=== PATIENT | male | born 1945 | race Caucasian/White ===

== ENCOUNTER → 2018-03-19 | Outpatient (CLI) | payer OTHER ==
[~2018-03-19] MED LIST: ACIDOPHILUS PROB1 MG PO; COMPLETE MULTI1 EAC1 PO; Crestor40 MG PO; FISH1000 PO; LOSARTAN POTAS100 MG PO
[2018-03-19 13:53] LABS: BASOPHILS ABSOLUTE AUTO 0.04 K/mm3 (0.00-0.23); BASOPHILS PERCENT AUTO 0 % (0-2); EOSINOPHILS ABSOLUTE AUTO 0.38 K/mm3 (0.00-0.68); EOSINOPHILS PERCENT AUTO 4 % (0-6); Hemoglobin 13.9 g/dL (13.5-17.5); IMMATURE GRAN ABSOLUTE AUTO 0.04 K/mm3 (0.00-0.10); IMMATURE GRAN PERCENT AUTO 0 % (0-1); LYMPHOCYTES ABSOLUTE AUTO 0.88 K/mm3 (0.84-5.20); LYMPHOCYTES PERCENT AUTO 9 % (21-46); MONOCYTES PERCENT AUTO 9 % (4-13); Mean Corpuscular HGB 32.7 pg (26.0-34.0); Mean Corpuscular HGB Conc 33.9 g/dL (31.5-36.5); Mean Corpuscular Volume 97 fL (80-100); Mean Platelet Volume 10.4 fL (9.1-12.4); NEUTROPHILS ABSOLUTE AUTO 7.25 K/mm3 (1.96-9.15); NEUTROPHILS PERCENT AUTO 77 % (41-73); Platelet Count 164 K/mm3 (150-400); RDW Coefficient Variation 12.7 % (11.7-14.2); RDW Standard Deviation 44.8 fL (35.1-46.3); Red Blood Cell Count 4.25 M/mm3 (4.30-5.90); White Blood Cell Count 9.39 K/mm3 (4.00-11.30)
[2018-03-19 15:23] LABS: Albumin/Globulin Ratio 0.6 (0.8-1.8); Bilirubin, Total 0.4 mg/dL (0.1-1.0); Bun/Creatinine Ratio 7.6 (12.0-20.0); Calcium, Blood 8.6 mg/dL (8.5-10.1); Creatinine, Blood 19.5 mg/dL (0.60-1.20); Globulin, Blood 4.7 g/dL (2.2-4.0); Potassium, Blood 4.9 mmol/L (3.5-5.5); Total Protein, Blood 7.7 g/dL (6.4-8.2)
== END ==
LOC: LAB SHORT 13:30 → LAB 13:30
PROVIDERS: Nurse Practitioner
DX: R21 Rash and other nonspecific skin eruption (principal); R53.83 Other fatigue
CPT/HCPCS: 80053; 85025; 85651

== ENCOUNTER 2019-06-24 20:45 | Emergency (ER) | payer OTHER ==
[~2019-06-24] VITALS: Ht 177.8 cm; Wt 84.4 kg
== END 2019-06-24 22:50 | disposition home or self-care (01) ==
LOC: ER 20:45
DX: R04.0 Epistaxis (principal); Z79.899 Other long term (current) drug therapy
CPT/HCPCS: 30901; 99283-25

== ENCOUNTER → 2019-10-05 | Outpatient (CLI) | payer OTHER | END | disposition home or self-care (01) | LOC: PLD 15:20 → LAB SHORT 15:20 | DX: C44.222 Squamous cell carcinoma of skin of right ear and external auricular canal (principal) | CPT/HCPCS: 88305 ==

== ENCOUNTER 2021-01-09 06:40 | Day surgery (SDC) | payer OTHER ==
[~2021-01-09] VITALS: Ht 177.8 cm; Wt 78.0 kg
[2021-01-09] MEDS ORDERED: LOSA25 (06:57)
--- NOTE | 2021-01-09 08:22 | NUR ---
01/09/21 0822 Yoselyn Virk PURPLE SCOPE REMOVED AT 0816. SCOPE SWITCH OVER TO PEDIATRIC RED AND WHITE SCOPE. SCOPE REINSERTED AT 0820 ON LEFT LATERAL SIDE.
== END 2021-01-09 09:00 | disposition home or self-care (01) ==
LOC: ORSCSDS 06:40
PROVIDERS: Surgery
PROC: 0DBN8ZX Excision of Sigmoid Colon, Via Natural or Artificial Opening Endoscopic, Diagnostic (ICD-10-PCS; principal; 2021-01-09 08:00)
DX: Z12.11 Encounter for screening for malignant neoplasm of colon (principal); Z86.010 Personal history of colon polyps; K56.699 Other intestinal obstruction unspecified as to partial versus complete obstruction; E11.22 Type 2 diabetes mellitus with diabetic chronic kidney disease; I12.0 Hypertensive chronic kidney disease with stage 5 chronic kidney disease or end stage renal disease; N18.5 Chronic kidney disease, stage 5; Z87.891 Personal history of nicotine dependence; Z79.82 Long term (current) use of aspirin; Z79.899 Other long term (current) drug therapy
CPT/HCPCS: 82947; 88305; J2704; J7120

== ENCOUNTER 2021-01-11 04:43 | Inpatient (IN) | payer OTHER ==
[~2021-01-11] VITALS: Ht 177.8 cm; Wt 91.0 kg
[~2021-01-11 04:43] MED LIST changes: +LOSA25
[2021-01-11 06:01] LABS: BASOPHILS ABSOLUTE AUTO 0.02 K/mm3 (0.00-0.23); BASOPHILS PERCENT AUTO 0 % (0-2); Hematocrit 28.2 % (37.0-53.0); Hemoglobin 9.4 g/dL (13.5-17.5); LYMPHOCYTES ABSOLUTE AUTO 0.46 K/mm3 (0.84-5.20); LYMPHOCYTES PERCENT AUTO 8 % (21-46); MONOCYTES ABSOLUTE AUTO 0.21 K/mm3 (0.16-1.47); MONOCYTES PERCENT AUTO 4 % (4-13); Mean Corpuscular HGB 34.3 pg (26.0-34.0); Mean Corpuscular HGB Conc 33.3 g/dL (31.5-36.5); Mean Corpuscular Volume 103 fL (80-100); Mean Platelet Volume 9.5 fL (9.1-12.4); Platelet Count 99 K/mm3 (150-400); RDW Coefficient Variation 12.4 % (11.7-14.2); RDW Standard Deviation 46.3 fL (35.1-46.3); Red Blood Cell Count 2.74 M/mm3 (4.30-5.90); White Blood Cell Count 5.89 K/mm3 (4.00-11.30)
[2021-01-11 06:17] LABS: EOSINOPHILS ABSOLUTE AUTO 0.02 K/mm3 (0.00-0.68); EOSINOPHILS PERCENT AUTO 0 % (0-6); IMMATURE GRAN ABSOLUTE AUTO 0.06 K/mm3 (0.00-0.10); IMMATURE GRAN PERCENT AUTO 1 % (0-1); NEUTROPHILS ABSOLUTE AUTO 5.12 K/mm3 (1.96-9.15); NEUTROPHILS PERCENT AUTO 87 % (41-73)
[2021-01-11 06:41] LABS: Albumin, Blood 2.1 g/dL (3.4-5.0); Albumin/Globulin Ratio 0.4 (0.8-1.8); Bilirubin, Total 0.9 mg/dL (0.1-1.0); Calcium, Blood 9.4 mg/dL (8.5-10.1); Globulin, Blood 4.9 g/dL (2.2-4.0); Potassium, Blood 3.6 mmol/L (3.5-5.5)
[2021-01-11 06:45] LABS: Bun/Creatinine Ratio 4.7 (12.0-20.0); Creatinine, Blood 8.45 mg/dL (0.60-1.20)
[2021-01-11 10:01] LABS: Influenza A, PCR NEGATIVE (NEGATIVE); Influenza B, PCR NEGATIVE (NEGATIVE); Resp Syncytial Virus, PCR NEGATIVE (NEGATIVE); SARS-Cov-2 (COVID-19) PCR, MMC NEGATIVE (NEGATIVE)
[2021-01-11 12:24] LABS: Hematocrit 24.7 % (37.0-53.0); Hemoglobin 8.4 g/dL (13.5-17.5)
[2021-01-11 15:32] LABS: Hematocrit 25.6 % (37.0-53.0); Hemoglobin 8.5 g/dL (13.5-17.5)
[2021-01-11 19:31] LABS: Hematocrit 26.2 % (37.0-53.0); Hemoglobin 8.7 g/dL (13.5-17.5)
--- NOTE | 2021-01-11 22:03 | NUR ---
PT IS EXPERIENCING RAPID HEART RATE AND DECREASED BP. INCREASED HEART RATE SHOWN ON BIT SANDER VERIFIED BY APICAL AUSCULTATION. PT ASSESSED MULTIPLE TIMES WITH SUSTAINING TACHYCARDIA. DR JOANN ZHU UPDATED ON PT CONDITION AND ORDERED A 500CC NS BOLUS. ORDER NOTED AND CARRIED OUT.
--- NOTE | 2021-01-11 23:40 | NUR ---
ASSUME CARE PT UPGRADED FROM SURGICAL FLOOR AND GOT BEDSIDE REPORT FROM SEAN NOE. PT IS A&OX4 AND DENIES PAIN CURRENT IN ABDOMEN. HR IN 140-150 AND MAP IS 60. AMIO STARTED AT 1MG/MIN AND LEVO ON STANDBY. NEW IV PLACED IN RIGHT FA. FISTULA IN LEFT ARM; THRILL PALPABLE AND BRILL HEARD. ON 2L NC PT IS SATING 97%. HE IS NPO FOR POSSIBLE SURGERY TOMORROW. HE USUALLY HAS DIALYSIS MON, WED, AND FRI AND SAYS DR. REYNOLDS WANTS HIM TO HAVE DIAYLSIS TOMORROW. HE STILL MAKES URINE SO URINAL AT BEDSIDE. CURRENT TEMPORAL TEMP IS 98.9. SEE SHIFT ASSESSMENT FOR DETAILS.
--- NOTE | 2021-01-12 00:38 | NUR ---
PT WAS EXPERIENCING DECLINING VITAL SIGNS, INCLUDING RAPID HEART RATE AND DECREASED BLOOD PRESSURE. ORDER TO GIVE HIM 500CC OF NS BOLUS FROM DR JOANN ZHU DID NOT IMPROVE PT CONDITION AFTER THE ORDER WAS CARRIED OUT. DR DE LA FUENTE ARRIVED TO CONSULT THE PT. DR DE LA FUENTE WROTE ORDERS FOR HYDROCORTISONE AND MIDODRINE WHICH WERE ADMINISTERED TO THE PATIENT. HIS CONDITION CONTINUED TO DECLINE. DR DE LA FUENTE ORDERED HIM TO BE TRANSFERRED TO ICU FOR FURTHER TREATMENT AND EVALUATION. PT WAS TRANSFERRED TO ICU JUST BEFORE 0000. BEDSIDE REPORT GIVEN TO RECEIVING NURSING STAFF.
[2021-01-12 04:01] LABS: Hematocrit 25.4 % (37.0-53.0); Hemoglobin 8.5 g/dL (13.5-17.5)
[2021-01-12 04:27] LABS: Magnesium, Blood 1.5 mg/dL (1.6-2.4)
[2021-01-12 04:31] LABS: Albumin, Blood 1.7 g/dL (3.4-5.0); Anion Gap 17 mmol/L (6-16); Blood Urea Nitrogen 49 mg/dL (8-24); Bun/Creatinine Ratio 5.8 (12.0-20.0); CO2, Blood 22 mmol/L (21-32); Calcium, Blood 8.5 mg/dL (8.5-10.1); Chloride, Blood 95 mmol/L (98-108); Glomerular Filtration Rate 6 (60-); Glucose, Blood 142 mg/dL (70-99); Phosphorus, Blood 5.9 mg/dL (2.5-4.9); Potassium, Blood 3.9 mmol/L (3.5-5.5); Sodium, Blood 134 mmol/L (136-145)
--- NOTE | 2021-01-12 06:16 | NUR ---
SHIFT SUMMARY: PT ARRIVED ON UNIT AROUND MIDNIGHT FROM SURGICAL UNIT FOR HYPOTENSION AND TACHYCARDIA. HE IS A&0X4 AND DENIES PAIN AT THIS TIME. HE HAS REMAINED AFEBRILE AND IS NPO FOR POSSIBLE SURGERY TODAY. ON 2L NC HE IS 96%, HR IS 72, AND BP IS 116/53. HE USES THE BEDSIDE URINAL. CURRENTY, HE HAS AMIO INFUSING AT 0.5MG/ML, LEVO AT 12MCG/MIN, AND NS 50ML/HR. PLANNING FOR DIALYSIS TODAY. WILL REPORT TO ONCOMING RN WHEN AVAILABLE.
--- NOTE | 2021-01-12 16:33 | NUR ---
TACHY DURING THE END OF DIALYSIS PT FLIPPED BACK INTO AFIB RVR WITH HR 110-140'S. PT DENIED CHEST PAIN. DR TIDWELL AND DR SOUSA NOTIFIED AND CAME TO BEDSIDE. MULTIPLE EKG'S DONE, PT THEN WITH SUSTAINED HR AT 150. PT GIVEN 6 MG ADENOSINE AT 1608. PT HR SLOWED TO 110'S. PT CONTINUES TO DENY CHEST PAIN. ORDERS RECIEVED TO RESTART PT ON AMIODARONE. BP REMAINS STABLE.
--- NOTE | 2021-01-12 16:55 | NUR ---
DIALYSIS STARTED TX FOR 2.5 HRS. 0 UF 3K DIALYSATE. PT C/O BEING COLD T/O THE TX. GOT HIM WARM BLANKETS SEVERAL TIMES. T98.0. C/O NAUSEA X1. ELECTRONIC WARFARE TECHNICAL GAVE ZOFRAN IV. PT BEGAN HAVING AFIB. ICU RNS CAME IN AND STARTED TO SET UP FOR AN EKG. DC'ED DIALYSIS TX 40 MIN EARLY.
--- NOTE | 2021-01-12 17:42 | NUR ---
SHIFT SUMMARY PT DID WELL THROUGHOUT MOST OF THIS SHIFT. PT HAS REMAINED AWAKE, ALERT, AND ORIENTED THROUGHOUT THE DAY. PT HAS DENIED ABD PAIN THIS SHIFT. PT WEANED OFF LEVOPHED THROUGHOUT THE MORNING. BP HAS REMAINED STABLE. DURING DIALYSIS THIS AFTERNOON PT WITH EPISODE OF AFIB RVR/ SVT. SEE NN. PT NOW WITH AMIODARONE GTT INFUSING AT 1 MG/MIN. CENTRAL LINE TO LEFT IJ IS C/D/I. PT USES URINAL TO VOID MINIMAL AMOUNT OF DARK YELLOW URINE INDEPENDENTLY. PT REPOSITIONS SELF IN BED FOR COMFORT. PT SPOUSE AT BEDSIDE THIS AFTERNOON. WILL CONTINUE TO MONITOR AND REPORT OFF TO ONCOMING RN.
--- NOTE | 2021-01-12 19:00 | NUR ---
ASSUME CARE: PT CONFUSED AND TRYING TO GET OUT OF BED. HE IS ALERT TO SELF AND TIME BUT IS CONFUSED TO PLACE AND SITUATION. THIS IS AN ACUTE CHANGE FROM THIS MORNING. THERE IS A CONCERN FOR ETOH WITHDRAW AND PT STATES HE DRINKS 4-6 GLASSES OF WINE PER DAY. ON 3L NC HE IS SATING 94%, HR IS 106, AND BP IS 100/54. AMIO INFUSING AT 1MG/MIN AND NS AT 50ML/HR. LEVO HAS BEEN ON STANDBY SINCE 1200. HE CONTINUES TO USE THE BEDSIDE URINAL AND IS ON A CLEAR LIQUID DIET. TEMPORAL TEMP IS 101.2. HE DENIES ANY PAIN BUT HIS BELLY IS TENDER TO PALPATION. 1909: CRITICAL TROPONIN 12.9 1914: INSTRUCTED BY FLOOR ATTENDANT TO CALL DR. ULLOA. DR. ULLOA STATES THAT THERE SHOULD BE A HOSPITALIST ON THE CASE. AT BEDSIDE, HE STATES THE PT SHOULD NOT EAT ANYTHING ELSE AND WOULD SEE THE PT TOMORROW. PT DENIES CHEST PAIN AND SOB. SPOKE WITH WHO STATES THAT IF THE NEXT TROPONIN IS HIGHER, HE WILL CONSIDER PLACING PT ON A HEPARIN DRIP. INFORM FLOOR ATTENDANT OF PLAN ABOVE.
--- NOTE | 2021-01-12 21:38 | NUR ---
UPDATE: NAUSEA/VOMITING AND ETOH WITHDRAWAL INFORMED DR. DE LA FUENTE THAT PT IS HAVING TO BE WHAT LOOKS LIKE COFFEE-GROUND EMESIS. ALSO MENTIONED POSSIBLE ETOH WITHDRAWAL AGAIN AND THAT HE DRINKS 4-6 GLASSES OF WINE PER DAY BUT CANNOT SAY WHEN HIS LAST DRINK WAS. HE STATES HE WILL ORDER A STAT CBC, PROTONIX, AND THE CIWA PROTOCOL.
[2021-01-12 22:35] LABS: Hematocrit 22.7 % (37.0-53.0); Hemoglobin 7.8 g/dL (13.5-17.5); Mean Corpuscular HGB 34.4 pg (26.0-34.0); Mean Corpuscular HGB Conc 34.4 g/dL (31.5-36.5); Mean Corpuscular Volume 100 fL (80-100); Mean Platelet Volume 9.3 fL (9.1-12.4); Platelet Count 115 K/mm3 (150-400); RDW Coefficient Variation 12.6 % (11.7-14.2); RDW Standard Deviation 45.5 fL (35.1-46.3); Red Blood Cell Count 2.27 M/mm3 (4.30-5.90); White Blood Cell Count 7.13 K/mm3 (4.00-11.30)
[2021-01-13 03:31] LABS: Hematocrit 23.2 % (37.0-53.0); Mean Corpuscular HGB 34.8 pg (26.0-34.0); Mean Corpuscular HGB Conc 34.5 g/dL (31.5-36.5); Mean Corpuscular Volume 101 fL (80-100); Mean Platelet Volume 9.3 fL (9.1-12.4); NRBC ABSOLUTE 0.02 K/mm3 (0.00-0.02); NRBC Auto 0.2 /100 WBC (0.0-0.2); Platelet Count 146 K/mm3 (150-400); RDW Coefficient Variation 12.7 % (11.7-14.2); RDW Standard Deviation 46.5 fL (35.1-46.3); White Blood Cell Count 10.08 K/mm3 (4.00-11.30)
[2021-01-13 03:59] LABS: BAND PERCENT MAN 13 % (0-8); BASOPHILS PERCENT MAN 0 % (0-2); EOSINOPHILS PERCENT MAN 0 % (0-6); LYMPHOCYTES PERCENT MAN 5 % (21-46); MONOCYTES PERCENT MAN 3 % (4-13); NEUTROPHILS ABSOLUTE MAN 9.27 K/mm3 (1.96-9.15); SEG NEUTROPHILS PERCENT MAN 79 % (41-73); TOTAL CELLS COUNTED 100
[2021-01-13 04:10] LABS: Albumin, Blood 1.5 g/dL (3.4-5.0); Albumin/Globulin Ratio 0.3 (0.8-1.8); Bilirubin, Total 0.6 mg/dL (0.1-1.0); Bun/Creatinine Ratio 6.4 (12.0-20.0); Creatinine, Blood 6.09 mg/dL (0.60-1.20); Globulin, Blood 4.9 g/dL (2.2-4.0); Magnesium, Blood 1.8 mg/dL (1.6-2.4); Phosphorus, Blood 4.8 mg/dL (2.5-4.9); Potassium, Blood 3.5 mmol/L (3.5-5.5); Total Protein, Blood 6.4 g/dL (6.4-8.2)
[2021-01-13 04:24] LABS: Troponin I 23.1 ng/mL (0.000-0.040)
--- NOTE | 2021-01-13 04:38 | NUR ---
UPDATE: TROPONIN 1930: INFORMED DR. ULLOA INFORMED THAT TROPONIN IS 12.9. HE STATED TO CALL HOSPITALIST. INFORMED DR. DE LA FUENTE OF TROPONIN. PT DENIES CHEST PAIN, SOB, OR ANY OTHER DISTRESS. HE IS PENDING AN ECHO. INTIALLY, HE ORDERED A STAT H&H, THEN POSSIBLY A HEPARIN DRIP, AND CARDIO CONSULT BUT DECIDED TO ONLY REPEAT A TROPONIN AT 2300. UPDATED FULFILLMENT ASSOCIATE ON ABOVE. 2332: INFORMED DR. DE LA FUENTE THAT TROPONIN IS 18.2. PT REMAINS ASYMPTOMATIC. HE ORDERED A TROPONIN RECHECK WITH [facility]. INFORMED FULFILLMENT ASSOCIATE OF PLAN TO RECHECK. 0436: INFORMED DR. DAVEY THAT TROPONIN IS NOW 23.1. PT IS STILL ASYMPTOMATIC AND RESTING QUIETLY. NO NEW ORDERS. RELAYED TO FULFILLMENT ASSOCIATE.
--- NOTE | 2021-01-13 06:17 | NUR ---
SHIFT SUMMARY: PT STILL HAS MOMENTS OF CONFUSION AND TRIES TO GET OUT OF BED. HE IS ORIENTED TO SELF AND TIME BUT FORGETS PLACE AND WHY HE'S IN THE HOSPITAL. ONCE REORIENTED, HE IS ABLE TO GIVE MORE DETAILS ABOUT WHAT BROUGHT HIM TO THE ICU BUT TENDS TO START TO RAMBLE/MUMBLE. CIWA PROTOCOL INTIATED AND 1 DOSE OF ATIVAN GIVEN FOR A SCORE OF 12. CURRENT SCORE IS 2. HE STILL DENIES CHEST PAIN AND SOB. HE RATES HIS ABDOMINAL PAIN A 4-5 BUT DECLINES PAIN MEDS. EDUCATED PT ON THE IMPORTANCE OF ALERTING STAFF TO THESE SYMPTOMS AND ADEQUATE PAIN MANAGEMENT. AMIO GTT INFUSING AT 0.5MG/MIN, LEVO AT 14MCG/MIN, AND NS AT 50ML/HR. HE IS ON 3L NC AND SATING >92%. HE USES THE BEDSIDE URINAL BUT NO BM THIS SHIFT. HE CURRENTLY DENIES NAUSEA AND HAD 2 EPISODES OF COFFEE GROUND EMESIS. WILL REPORT TO ONCOMING RN WHEN AVAILABLE.
--- NOTE | 2021-01-13 10:01 | NUR ---
Echocardiogram completed.
[2021-01-13 11:37] LABS: Hematocrit 24.1 % (37.0-53.0); Hemoglobin 8.3 g/dL (13.5-17.5)
[2021-01-13 12:01] LABS: International Normalized Ratio 0.99; Prothrombin Time Results 10.4 Sec (9.7-11.5)
[2021-01-13 13:15] LABS: Hemoglobin 8.2 g/dL (13.5-17.5)
[2021-01-13 13:23] LABS: International Normalized Ratio 1.01; Prothrombin Time Results 10.6 Sec (9.7-11.5)
--- NOTE | 2021-01-13 17:13 | NUR ---
SHIFT SUMMARY NO ACUTE CHANGES THIS SHIFT. PT HAS SLEPT OFF AND ON THROUGHOUT THE DAY. WHEN AWAKE PT IS ALERT AND ORIENTED, BUT HAS PERIODS OF CONFUSION. PT HAS DENIED CHEST PAIN OR ABDOMINAL PAIN THROUGHOUT THE SHIFT. PT DENIES NAUSEA. NO SIGNS OF VOMITING NOTED. PT WITH CENTRAL LINE TO LEFT IJ C/D/I. LEVOPHED TITRATED DOWN TO 6 MCG/MIN. AMIO GTT DISCONTINUED AND PT TRANSITIONED TO PO AMIO. NS INFUSING AT 50 ML/HR. VITAL SIGNS HAVE REMAINED STABLE. PT REMAINS ON 3L O2 NC. PT USES URINAL TO VOID MINIMAL AMOUNTS OF DARK YELLOW URINE. PT SEEN BY DR COELLO, DR TIDEWLL, DR LUNA, AND DR PARRA TODAY. NO MAJOR CHANGES TO PLAN OF CARE. PT SPOUSE AT BEDSIDE THIS AFTERNOON, UPDATED TO CURRENT CONDITION AND PLAN OF CARE. WILL CONTINUE TO MONITOR AND REPORT OFF TO ONCOMING RN.
[2021-01-13 18:43] LABS: Hematocrit 23.6 % (37.0-53.0)
--- NOTE | 2021-01-13 20:10 | NUR ---
ASSUME CARE: PT LYING IN BED AND IS ORIENTED TO PERSON, PLACE, TIME, AND SITUATION. HE IS DROWSY BUT DOES NOT APPEAR CONFUSED LIKE OVERNIGHT. HE DENIES PAIN, NAUSEA, AND SHORTNESS OF BREATH. ON 3L NC, HE IS SATING 94%. HE APPEARS SINUS ON THE MONITOR AND BP STABLE. LEVO GTT INFUSING AT 5MCG/MIN, CLINAMIX 100ML/HR, AND NS AT 50ML/HR. TEMP IS 99.1. HE CONTINUES TO USE THE BEDSIDE URINAL. HE IS TO REMAIN NPO EXCEPT FOR MEDS AND SMALL SIPS OF WATER OVERNIGHT. SKIN IS WARM, DRY, AND INTACT W/ GENERALIZED BRUSING TO THE BUE. SEE SHIFT ASSESSMENT FOR DETAILS.
[2021-01-14 03:51] LABS: Hematocrit 22.4 % (37.0-53.0); Hemoglobin 7.5 g/dL (13.5-17.5); Mean Corpuscular HGB 33.9 pg (26.0-34.0); Mean Corpuscular HGB Conc 33.5 g/dL (31.5-36.5); Mean Corpuscular Volume 101 fL (80-100); Mean Platelet Volume 8.9 fL (9.1-12.4); NRBC ABSOLUTE 0.02 K/mm3 (0.00-0.02); NRBC Auto 0.2 /100 WBC (0.0-0.2); Platelet Count 128 K/mm3 (150-400); RDW Coefficient Variation 12.8 % (11.7-14.2); RDW Standard Deviation 47.7 fL (35.1-46.3); Red Blood Cell Count 2.21 M/mm3 (4.30-5.90); White Blood Cell Count 8.61 K/mm3 (4.00-11.30)
[2021-01-14 04:09] LABS: Bun/Creatinine Ratio 7.9 (12.0-20.0); Calcium, Blood 7.9 mg/dL (8.5-10.1); Creatinine, Blood 6.73 mg/dL (0.60-1.20); Potassium, Blood 3.4 mmol/L (3.5-5.5)
[2021-01-14 04:27] LABS: BAND PERCENT MAN 18 % (0-8); BASOPHILS PERCENT MAN 0 % (0-2); EOSINOPHILS PERCENT MAN 0 % (0-6); LYMPHOCYTES ABSOLUTE MAN 0.68 K/mm3 (0.84-5.20); LYMPHOCYTES PERCENT MAN 8 % (21-46); MONOCYTES ABSOLUTE MAN 0.17 K/mm3 (0.16-1.47); MONOCYTES PERCENT MAN 2 % (4-13); NEUTROPHILS ABSOLUTE MAN 7.74 K/mm3 (1.96-9.15); SEG NEUTROPHILS PERCENT MAN 72 % (41-73); TOTAL CELLS COUNTED 100
--- NOTE | 2021-01-14 06:18 | NUR ---
DR. MODE COELLO CALLED IN REGARDS TO LAB RESULTS AND ORDERED 10 MEQ KCL AND A RENAL FUNCTION PANEL, CBC, AND MAG LAB FOR TOMORROW MORNING.
--- NOTE | 2021-01-14 06:24 | NUR ---
SHIFT SUMMARY: NO ACUTE OVERNIGHT EVENTS. PT RESTING IN BED QUIETLY AND IS EASILY AROUSABLE. HE HAS REMAINED ALERT AND ORIENTED T/O THE SHIFT AND CONTINUES TO DENY PAIN OR NAUSEA. ON 3L NC HIS SATS HAVE REMAINED >92%. BP HAS BEEN STABLE AND HR HAS BEEN BTW 80-105. LEVO GTT INFUSING AT 4MCG/MIN, CLINAMIX AT 100ML/HR, AND NS AT 50ML/HR. TMAX 99.3. HE CONTINUES TO USE THE BEDSIDE URINAL BUT DID NOT HAVE A BM THIS SHIFT. PENDING 10MEQ KCL FOR A POTASSIUM 3.4. WILL REPORT TO ONCOMING RN WHEN AVAILABLE.
--- NOTE | 2021-01-14 09:00 | NUR ---
ASSUMED CARE REPORT RECIEVED. PT IS RESTING IN BED QUIETLY. AWAKENS EASILY TO VERBAL STIMULI. IS ALERT AND ORIENTED. SOME PERIODS OF FORGETFULNESS. DENIES ANY PAIN OR DISCOMFORT. VITAL SIGNS STABLE. LEVOPHED INFUSING AT 4 MCG/MIN, NS 50 ML/HR, AND CLINIMIX 100 ML/HR. CENTRAL LINE TO L IJ IS C/D/I. PT USING URINAL TO VOID MINIMAL AMOUNTS OF CLEAR YELLOW URINE. PT REPORTS PASSING GAS. WILL CONTINUE TO MONITOR.
[2021-01-14 10:06] LABS: Source, Urine Clean Catch
[2021-01-14 10:46] LABS: Appearance, Urine Clear (Clear); Bilirubin, Urine Neg (Neg); Blood, Urine 4+ (Neg); Color, Urine Yellow (P-Yellow); Glucose Qualitative, Urine 2+ (Neg); Ketones, Urine Neg (Neg); Leukocyte Esterase, Urine Neg (Neg); Nitrite, Urine Neg (Neg); Protein, Urine 3+ (Neg); Urobilinogen, Urine NORM (Normal)
[2021-01-14 10:55] LABS: Amorphous Light (0-Heavy); Bacteria Rare /hpf; Squamous Epithelial Cells Rare /hpf (Few); White Blood Cells, Urine 0-2 /hpf (0-5)
--- NOTE | 2021-01-14 16:57 | NUR ---
SHIFT SUMMARY NO ACUTE CHANGES THIS SHIFT. PT HAS REMAINED ALERT AND ORIENTED WHEN AWAKE. PT WITH PERIODS OF SLEEPING DURING THE DAY. PT HAS DENIED PAIN OR NAUSEA THROUGHOUT THE DAY. CENTRAL LINE TO LIJ C/D/I. LEVOPHED TITRATED BETWEEN 2-6 MCG/MIN THIS SHIFT, CURRENTLY INFUSING AT 2 MCG/MIN. NS INFUSING AT 50 ML/HR, CLINIMIX INFUSING AT 50 ML/HR. PT RECIEVED DIALYSIS THIS AFTERNOON. PT WITH HR CHANGES BACK TO AFIB DURING DIALYSIS. PT RETURNED TO NSR POST DIALYSIS. PT USING URINAL TO VOID MINIMAL AMOUNTS OF CLEAR YELLOW URINE OUTPUT. PT TAKING SOME PO LIQUID INTAKE. VITAL SIGNS HAVE REMAINED STABLE. PT SPOUSE AT BEDSIDE THIS AFTERNOON. WILL CONTINUE TO MONITOR AND REPORT OFF TO ONCOMING RN.
--- NOTE | 2021-01-14 19:00 | NUR ---
ASSUME CARE: THIS EVENING PT IS LYING BED WATCHING TELEVISION. HE IS ALERT AND ORIENTED AND DENIES ANY PAIN OR NAUSEA. ON 3L NC HE IS SATING >95% AND ALL OTHER VITALS ARE WNL. HE USES A BEDSIDE URINAL AND STATES HE IS PASSING GAS. HE STATES HE HAS TOLERATED JELLO AND BROTH TODAY. LEVO GTT INFUSING AT 2MCG/MIN, CLINAMIX AT 50ML/HR, AND NS AT 50ML/HR TO L IJ CVC. HE CURRENTLY HAS NO COMPLAINTS OR REQUESTS EXCEPT TO SLEEP. SEE SHIFT UPDATE FOR DETAILS.
[2021-01-15 03:42] LABS: Hematocrit 24.6 % (37.0-53.0); Hemoglobin 8.4 g/dL (13.5-17.5); Mean Corpuscular HGB 33.7 pg (26.0-34.0); Mean Corpuscular HGB Conc 34.1 g/dL (31.5-36.5); Mean Corpuscular Volume 99 fL (80-100); Mean Platelet Volume 9.1 fL (9.1-12.4); Platelet Count 135 K/mm3 (150-400); RDW Coefficient Variation 15.1 % (11.7-14.2); RDW Standard Deviation 54.4 fL (35.1-46.3); Red Blood Cell Count 2.49 M/mm3 (4.30-5.90)
[2021-01-15 04:07] LABS: Albumin, Blood 1.2 g/dL (3.4-5.0); Anion Gap 11 mmol/L (6-16); Blood Urea Nitrogen 36 mg/dL (8-24); CO2, Blood 26 mmol/L (21-32); Chloride, Blood 101 mmol/L (98-108); Creatinine, Blood 4.48 mg/dL (0.60-1.20); Glomerular Filtration Rate 13 (60-); Glucose, Blood 130 mg/dL (70-99); Phosphorus, Blood 4.4 mg/dL (2.5-4.9); Potassium, Blood 3.8 mmol/L (3.5-5.5); Sodium, Blood 138 mmol/L (136-145)
[2021-01-15 05:34] LABS: BAND PERCENT MAN 17 % (0-8); BASOPHILS PERCENT MAN 0 % (0-2); EOSINOPHILS ABSOLUTE MAN 0.09 K/mm3 (0.00-0.68); EOSINOPHILS PERCENT MAN 1 % (0-6); LYMPHOCYTES ABSOLUTE MAN 0.38 K/mm3 (0.84-5.20); LYMPHOCYTES PERCENT MAN 4 % (21-46); MONOCYTES ABSOLUTE MAN 0.38 K/mm3 (0.16-1.47); MONOCYTES PERCENT MAN 4 % (4-13); NEUTROPHILS ABSOLUTE MAN 8.64 K/mm3 (1.96-9.15); SEG NEUTROPHILS PERCENT MAN 74 % (41-73); TOTAL CELLS COUNTED 100
--- NOTE | 2021-01-15 06:39 | NUR ---
SHIFT SUMMARY: PT REMAINS ALERT AND ORIENTED T/O SHIFT W/ NO COMPLAINTS OF PAIN. ON 3L NC HE SATS >95%. VITALS STABLE T/O SHIFT. LEVO CONTINUES TO INFUSE AT 2MCG/MIN, CLINAMIX AT 50ML/HR, AND NS AT 50ML/HR. HE STILL USES THE URINAL AND HAS GOTTEN UP TO THE BEDSIDE COMMODE TWICE FOR BM. THEY WERE BOTH SMALL, JELLY, AND MAROON. HE HAS TOLERATED WATER WELL BUT HAS NOT HAD ANY OTHER CLEAR LIQUIDS. HE HAD 2 EPISODES OF NAUSEA AND ZOFRAN WAS GIVEN ONE TIME. WILL REPORT TO ONCOMING RN WHEN AVAILABLE.
--- NOTE | 2021-01-15 08:00 | NUR ---
INITIAL ASSESSMENT PATIENT RESTING QUIETLY IN BED, WATCHING TV, UPON ENTERING ROOM. PATIENT SLIGHTLY WEAK BUT ABLE TO SHIFT OWN HIPS IN BED. PATIENT [place]- HEARING AIDES IN PLACE. PATIENT AFEBRILE. PATIENT DENIES PAIN OR DISCOMFORT. CIWA SCORE OF ZERO. PATIENT SATTING 90% AND GREATER ON 3 L NC. LUNGS CLEAR IN UPPER LOBES; INSPIRATORY CRACKLES NOTED IN LOWER LOBES. PATIENT HAS WEAK, OCCASIONALLY PRODUCTIVE COUGH. PATIENT SWALLOWS SPUTUM. PATIENT IN SR TO ST WITH BBB, HR 90S TO LOW 100S. SBP 90S TO LOW 100S. LEVOPHED PLACED ON SB THIS AM. PATIENT RECEIVING AMIODARONE PO. 1+ EDEMA NOTED TO BILAT FEET AND ANKLES. SCDS IN PLACE. ABDOMEN MODERATELY DISTENDED, FIRM, WITH HYPOACTIVE BS NOTED. PATIENT HAD 2 SMALL, JELLY, MAROON BMS ON REGISTRATION MANAGER. PATIENT OLIGURIC- DIALYSIS PATIENT. FISTULA NOTED TO L FA- + BRUIT AND THRILL NOTED. SCATTERED BRUISES NOTED. CLINIMIX INFUSING AT 50 MLS/ HOUR AND NS AT 50 MLS/ HOUR. BED LOW, CALL LIGHT IN REACH. WILL CONTINUE TO MONITOR PATIENT FREQUENTLY THROUGHOUT SHIFT.
[2021-01-15 12:10] LABS: Hematocrit 24.7 % (37.0-53.0)
--- NOTE | 2021-01-15 13:00 | NUR ---
PATIENT AFEBRILE. NO COMPLAINTS OF PAIN. DENIES NAUSEA. CIWA SCORE OF ZERO. HR 80S TO LOW 100S. SBP 90S TO LOW 100S. NO OTHER ACUTE CHANGES TO NOTE ON AT THIS TIME. WILL CONTINUE TO MONITOR.
--- NOTE | 2021-01-15 13:59 | NUR ---
DR. REYNOLDS CALLED TO UPDATE ON PATIENT. ORDERED FOR DIET TO BE INCREASED TOLERATED.
--- NOTE | 2021-01-15 16:29 | NUR ---
DR. TIDWELL UPDATED ON PATIENT STATUS. INFORMED THAT MAPS HAVE BEEN 70S TO 80S THE LAST FEW HOURS. INFORMED THAT PATIENT HAD XS BROWN BM WITH SCANT AMOUNT OF MAROON IN IT TODAY. INFORMED THAT DIET INCREASED PER SURGEON; PATIENT APPEARED TO BE MUCH MORE INTO FOOD, BUT THEN HE BECAME NAUSEOUS SOON HE TOOK A BITE. INFORMED THAT NURSE GAVE ZOFRAN. INFORMED THAT PATIENT COMPLAINS THAT HE IS HAVING A HARD TIME BREATHING AT TIMES. PATIENT REMAINS SATTING 92% AND GREATER ON [address] TIDWELL THAT PATIENT IS OLIGURIC AND RECEIVING CLINIMIX AND NS, BUT THAT HE IS ALSO GETTING DIALYSIS QOD. ORDERS RECEIVED.
--- NOTE | 2021-01-15 16:50 | NUR ---
PATIENT AFEBRILE. DENIES PAIN. CIWA SCORE ZERO. HR 80S TO LOW 100S. SBP 90S TO 120S. CLINIMIX AND NS DC'D. NO OTHER ACUTE CHANGES TO NOTE ON AT THIS TIME.
--- NOTE | 2021-01-15 19:15 | NUR ---
SHIFT SUMMARY PATIENT REMAINED ABLE TO ANSWER ALL ORIENTATION QUESTIONS CORRECTLY. PATIENT DID MAKE STATEMENTS OCCASIONALLY THAT DIDN'T MAKE SENSE. PATIENT REMAINED AFEBRILE. PATIENT HAD NO COMPLAINTS OF PAIN. CIWAS REMAINED ZERO. PATIENT FELT MORE SOB SHIFT WENT ON. PATIENT REMAINED SATTING 90% AND GREATER ON 3 L NC. PATIENT CONTINUED TO HAVE WEAK, OCCASIONALLY PRODUCTIVE COUGH. DR. TIDWELL ORDERED FOR AM CHEST XR AND FOR FLUIDS TO BE DC'D. PATIENT SR TO ST WITH BBB AND OCCASIONAL PVCS. HR RANGED FROM 80S TO LOW 100S. SBP RANGED FROM 80S TO 120S. PATIENT DOES LIFT HIS ARMS BEHIND HIS HEAD FREQUENTLY AND THUS MEASURES LOWER BP. LEVOPHED PLACED ON SB THIS MORNING AND THEN DC'D. ABDOMEN REMAINED DISTENDED AND FIRM. PATIENT HAD 1 XS BROWN/ MAROON STOOL AND 1 XM BROWN ONLY STOOL THIS SHIFT. PATIENT INCREASED TO SOFT/ CARDIAC DIET THIS SHIFT. PATIENT HAS POOR APPETITE. PATIENT BECAME NAUSEOUS WHEN TOOK BITE OF SOFT FOOD AND WAS GIVEN PRN ZOFRAN. PATIENT REMAINED OLIGURIC. NO CHANGES TO SKIN NOTED. NS TKO. PATIENT REFUSED BED BATH THIS SHIFT. BED LOW, CALL LIGHT IN REACH. NO COMPLAINTS AT THIS TIME. REPORT GIVEN TO ASSUMING CHRISTM[employer] TREE FARM MANAGER NURSE.
[2021-01-15 19:19] LABS: Hematocrit 24.5 % (37.0-53.0); Hemoglobin 8.2 g/dL (13.5-17.5)
--- NOTE | 2021-01-15 19:40 | NUR ---
PT RESTING IN LOW SEMI FOWLERS POSITION IN BED - WATCHING TV. PT DENIES ANY ABDOMINAL PAIN, HEADACHE, CHEST PAIN, NAUSEA, OR NUMBNESS AND TINGLING. PT HAS SCATTERED UPPER EXTREMITY BRUISES. PT REPORTS SOB "OCCASIONALLY." SATS WNL ON 3L NC. PT HAS A WEAK, OCCASIONALLY PRODUCTIVE COUGH. FLUIDS AT BEDSIDE. CALL LIGHT WITHIN REACH. BED ALARM ON FOR PT SAFETY. BED IN LOW POSITION.
--- NOTE | 2021-01-15 20:15 | NUR ---
PT UP TO BSC, WITH A 2 PERSON ASSIST - PT'S BLE ARE WEAK. PT HAD A SMALL JELLY BM - BROWNISH/MAROON IN COLOR. PT WAS INCONTINENT OF BM, PRIOR TO USE OF BSC.
[2021-01-16 03:57] LABS: BASOPHILS ABSOLUTE AUTO 0.04 K/mm3 (0.00-0.23); BASOPHILS PERCENT AUTO 0 % (0-2); Hematocrit 23.7 % (37.0-53.0); Hemoglobin 7.9 g/dL (13.5-17.5); LYMPHOCYTES ABSOLUTE AUTO 0.45 K/mm3 (0.84-5.20); LYMPHOCYTES PERCENT AUTO 4 % (21-46); MONOCYTES ABSOLUTE AUTO 0.24 K/mm3 (0.16-1.47); MONOCYTES PERCENT AUTO 2 % (4-13); Mean Corpuscular HGB 33.5 pg (26.0-34.0); Mean Corpuscular HGB Conc 33.3 g/dL (31.5-36.5); Mean Corpuscular Volume 100 fL (80-100); Mean Platelet Volume 9.1 fL (9.1-12.4); NRBC ABSOLUTE 0.03 K/mm3 (0.00-0.02); NRBC Auto 0.3 /100 WBC (0.0-0.2); Platelet Count 146 K/mm3 (150-400); RDW Coefficient Variation 15.3 % (11.7-14.2); RDW Standard Deviation 56.3 fL (35.1-46.3); Red Blood Cell Count 2.36 M/mm3 (4.30-5.90); White Blood Cell Count 11.79 K/mm3 (4.00-11.30)
[2021-01-16 04:07] LABS: EOSINOPHILS ABSOLUTE AUTO 0.02 K/mm3 (0.00-0.68); EOSINOPHILS PERCENT AUTO 0 % (0-6); IMMATURE GRAN ABSOLUTE AUTO 0.08 K/mm3 (0.00-0.10); IMMATURE GRAN PERCENT AUTO 1 % (0-1); NEUTROPHILS ABSOLUTE AUTO 10.96 K/mm3 (1.96-9.15); NEUTROPHILS PERCENT AUTO 93 % (41-73)
[2021-01-16 04:41] LABS: Bun/Creatinine Ratio 8.9 (12.0-20.0); Creatinine, Blood 5.4 mg/dL (0.60-1.20); Potassium, Blood 4.1 mmol/L (3.5-5.5)
[2021-01-16 05:19] LABS: BAND PERCENT MAN 7 % (0-8); BASOPHILS PERCENT MAN 0 % (0-2); EOSINOPHILS PERCENT MAN 0 % (0-6); LYMPHOCYTES ABSOLUTE MAN 0.23 K/mm3 (0.84-5.20); LYMPHOCYTES PERCENT MAN 2 % (21-46); MONOCYTES ABSOLUTE MAN 0.47 K/mm3 (0.16-1.47); MONOCYTES PERCENT MAN 4 % (4-13); NEUTROPHILS ABSOLUTE MAN 11.08 K/mm3 (1.96-9.15); SEG NEUTROPHILS PERCENT MAN 87 % (41-73); TOTAL CELLS COUNTED 100
--- NOTE | 2021-01-16 05:49 | NUR ---
SHIFT SUMMARY - PT HAS BEEN AWAKE THROUGHOUT MOST OF THE NIGHT, WITH OCCASIONAL SHORT EPISODES OF SLEEP. PT HAS DENIED ANY COMPLAINTS OF NAUSEA OR PAIN. PT CONTINUES ON 3L OXYGEN VIA NC, PT HAS HAD SEVERAL EPISODES OF SHALLOW BREATHING, WITH A WEAK COUGH EFFORT. SATS WNL IN 90'S, WITH AN OCCASIONAL DIP INTO MID TO UPPER 80'S - HOWEVER PT RECOVERS WITH DEEP BREATHS. PT HAD A CHEST XRAY THIS AM. LS HAVE REMAINED THE SAME, MY INITIAL ASSESSMENT, THROUGHOUT THE NIGHT. PREVIOUS RN REPORTED SHE DISCUSSED WITH DAY SHIFT DOCTOR, CONCERNS ABOUT RESPIRATORY CHANGES - SEE DAY SHIFT RN NOTE. PT IS A DIALYSIS PATIENT - ANTICIPATE DIALYSIS TODAY. PT TOLERATED PO FLUIDS, TAKING PO MEDICATIONS, AND AMBULATED TO BS WITH 2 PERSON ASSIST. PT CONTINUES WITH JELLY LIKE BM'S - CHANGED FROM MAROON/BROWN AT BEGINNING OF SHIFT TO ORANGE/YELLOW IN COLOR THIS AM. PT HAS MADE OCCASIONAL ODD STATEMENTS TONIGHT, REPORTED HE SAW ANTS ON THE GROUND. PT ALSO WAS IN BED, AND REPORTED HE WANTED TO GO TO BED IN A DARK ROOM - ATTEMPTED TO MAKE THE ROOM DARK POSSIBLE FOR PT COMFORT - REORIENTED PT THAT HE WAS ALREADY IN BED - PT IS ORIENTED X3, BUT MAKES OCCASIONAL ODD STATEMENTS. CALL LIGHT WITHIN REACH. BED IN LOW POSITION. BED ALARM ON FOR PT SAFETY. FLUIDS AT BEDSIDE.
--- NOTE | 2021-01-16 06:22 | NUR ---
SPO2 - LOW QUALITY READING, PER MONITOR.
--- NOTE | 2021-01-16 06:34 | NUR ---
SATS 91-93% ON 3L OXYGEN VIA NC. PT SITTING UP IN HIGH SEMI FOWLERS POSITION IN BED. BED IN LOW POSITION. CALL LIGHT WITHIN REACH. BED ALARM ON FOR PT SAFETY. FLUIDS AT BEDSIDE. PT IS COUGHING UP CLEAR PHLEGM.
--- NOTE | 2021-01-16 07:30 | NUR ---
INITIAL ASSESSMENT PATIENT ANSWERED ALL ORIENTATION QUESTIONS CORRECTLY THIS AM, HOWEVER PATIENT MAKES STATEMENTS THAT DO NOT PERTAIN TO CONVERSATIONS AND DO NOT MAKE SENSE. PATIENT [place]- HEARING AIDES IN PLACE. PATIENT AFEBRILE. PATIENT DENIES PAIN OR DISCOMFORT. PATIENT WEAK- 2 PERSON ASSIST WITH FWW. PATIENT SATTING 93 TO 95% ON 3 L NC. LUNGS CLEAR IN UPPER LOBES; RHONCHI NOTED IN BILAT LOWER LOBES. PATIENT HAS WEAK COUGH THAT IS PRODUCING THIN, CLEAR SPUTUM. PATIENT HAVING SOB THIS AM. PATIENT IN FIRST DEGREE BLOCK WITH BBB AND OCCASIONAL PACS. HR 80S TO 90S. SBP IN THE LOW 100S. 1+ EDEMA NOTED TO BILAT FEET AND ANKLES. ABDOMEN MODERATELY DISTENDED, FIRM, WITH TYMPANIC BOWEL SOUNDS AUSCULTATED. PATIENT HAD 4 JELLY BMS ON PAPER MACHINE TENDER. PATIENT OLIGURIC; DIALYSIS PATIENT. SKIN COOL AND PALE. FISTULA TO L FA; + BRUIT AND THRILL NOTED. SCATTERED BRUISES T/O. NS TKO. BED LOW, CALL LIGHT IN REACH. WILL CONTINUE TO MONITOR PATIENT FREQUENTLY THROUGHOUT SHIFT.
[2021-01-16 07:39] LABS: Base Excess Venous -4.6 mmol/L; Bicarbonate Venous 20.7 mmol/L (24.0-30.0); pH Blood Venous 7.28 (7.34-7.37)
--- NOTE | 2021-01-16 08:30 | NUR ---
DR. TIDWELL AND DR. HO HERE TO SEE PATIENT. UPDATED ON PATIENT STATUS. INFORMED THAT WBC INCREASED TO 11.79, HGB 7.9, CALCIUM 8.0. INFORMED THAT VBG PH 7.28, PCO2 47, HC03 20.7. INFORMED THAT PATIENT ANSWERING ALL ORIENTATION QUESTIONS CORRECTLY HOWEVER DOES SAY STATEMENTS OCCASIONALLY THAT DO NOT PERTAIN TO CONVERSATION OR THAT DO NOT MAKE SENSE. INFORMED THAT CIWA SCORE ZERO THIS AM. INFORMED THAT PATIENT HAD CIWA SCORE OF 6 WELL HALLUCINATIONS ON EVENT MARKETING ASSISTANT PER REPORT. EVENT MARKETING ASSISTANT STATED THAT PATIENT DID NOT SLEEP WELL DURING NIGHT. INFORMED DOCTORS THAT PATIENT STILL COMPLAINS OF SOB. PATIENT CONTINUES TO PUT HANDS BEHIND HEAD; NURSE ASKED IF HE DOES THIS FOR COMFORT OR BECAUSE IT HELPS HIM BREATH. PATIENT STATES THAT HE "BREATHS BETTER THIS WAY". INFORMED THAT PATIENT HAS WEAK COUGH AND IS COUGHING UP CLEAR, THIN SPUTUM. INFORMED THAT FLUIDS HAVE BEEN OFF AND UNSURE IF PATIENT WILL RECEIVE DIALYSIS TODAY OR NOT. INFORMED THAT PATIENT HAD 1 JELLY, MAROON/ BROWN BM AND 3 JELLY, ORANGE/ YELLOW/ BROWN BMS ON EVENT MARKETING ASSISTANT. ORDER TO CHANGE STATUS TO SURGICAL RECEIVED.
--- NOTE | 2021-01-16 12:30 | NUR ---
PATIENT AFEBRILE. NO COMPLAINTS OF PAIN. HR IN THE 70S. SBP IN THE 80S. MAP OVER 65. NO OTHER ACUTE CHANGES TO NOTE ON AT THIS TIME. WILL CONTINUE TO MONITOR.
--- NOTE | 2021-01-16 16:30 | NUR ---
PATIENT BACK FROM DIALYSIS- 600 MLS TAKEN OFF. PATIENT AFEBRILE. DENIES PAIN OR NAUSEA. HR IN THE 80S. BP 112/ 51. NO OTHER ACUTE CHANGES TO NOTE ON AT THIS TIME. WILL CONTINUE TO MONITOR.
--- NOTE | 2021-01-16 17:29 | NUR ---
DR. SOUSA INFORMED THAT PATIENT'S CHEST XR SHOWED NEW LLL PNA. INFORMED THAT WBCS INCREASED EVEN THOUGH PATIENT ON ZOSYN. ASKED FOR SPUTUM CULTURE. ORDER RECEIVED.
--- NOTE | 2021-01-16 18:26 | NUR ---
SHIFT SUMMARY PATIENT REMAINED ABLE TO ANSWER ALL ORIENTATION QUESTIONS CORRECTLY. PATIENT DID CONTINUED TO SAY STATEMENTS THAT WERE OUT OF CONTEXT OR JUST DIDNT MAKE SENSE IN GENERAL. CIWA REMAINED ZERO. PATIENT REMAINED AFEBRILE. PATIENT HAD NO COMPLAINTS OF PAIN. PATIENT WORKED WITH PT AND OT TODAY. PATIENT OUT OF BED TO CHAIR FOR SEVERAL HOURS. PATIENT TIRED AFTER WORKING WITH THERAPY. PATIENT REMAINED SATTING 90% AND GREATER ON 3 L NC. PATIENT CONTINUED TO HAVE WEAK COUGH WITH THIN TO THICK, CLEAR SPUTUM NOTED. SPUTUM CULTURE ORDERED PATIENT'S WBCS INCREASED WHILE PATIENT ON ZOSYN AND AM CHEST XR SHOWED NEW LLL PNA. PATIENT REMAINED SR WITH FIRST DEGREE BLOCK AND BBB, WITH OCCASIONALS PACS. HR 70S TO 90S. SBP 80S TO 112. PATIENT HAD A COUPLE XS PASTY BROWN STOOLS THIS SHIFT. PATIENT APPETITE STILL POOR BUT IS IMPROVING. NO COMPLAINTS OR SIGNS OF NAUSEA THIS SHIFT. PATIENT ANURIC TODAY. NO CHANGES TO SKIN NOTED. PATIENT REPOSITIONED THROUGHOUT SHIFT. NS INFUSING TKO. PATIENT HAD DIALYSIS TODAY AND HAD 600 MLS OFF. PATIENT'S CAME TO VISIT [facility]. PATIENT HAS NO COMPLAINTS AT THIS TIME. BED LOW, CALL LIGHT IN REACH. REPORT WILL BE GIVEN TO ASSUMING CLINICAL QUALITY ANALYST NURSE SHORTLY.
[2021-01-17 04:16] LABS: Hematocrit 22.8 % (37.0-53.0); Hemoglobin 7.6 g/dL (13.5-17.5)
[2021-01-17 05:08] LABS: Albumin, Blood 1.1 g/dL (3.4-5.0); Anion Gap 12 mmol/L (6-16); Blood Urea Nitrogen 35 mg/dL (8-24); Bun/Creatinine Ratio 8.1 (12.0-20.0); CO2, Blood 27 mmol/L (21-32); Calcium, Blood 7.8 mg/dL (8.5-10.1); Chloride, Blood 100 mmol/L (98-108); Creatinine, Blood 4.33 mg/dL (0.60-1.20); Glomerular Filtration Rate 13 (60-); Glucose, Blood 121 mg/dL (70-99); Magnesium, Blood 2.1 mg/dL (1.6-2.4); Phosphorus, Blood 5.7 mg/dL (2.5-4.9); Potassium, Blood 3.8 mmol/L (3.5-5.5); Sodium, Blood 139 mmol/L (136-145)
--- NOTE | 2021-01-17 05:44 | NUR ---
End of shift summary: shift mostly uneventful BM x4, Medium - Small - Scant - Scant - all brown, unformed pasty-liquid No urine output - dialysis patient Sputum sample rejected d/t normal oral jhoan; oxygen decreased to 2L NC Remains oriented x 4 but with confused conversation
[2021-01-17 08:35] LABS: Hematocrit 23.1 % (37.0-53.0); Hemoglobin 7.5 g/dL (13.5-17.5); Mean Corpuscular HGB Conc 32.5 g/dL (31.5-36.5); Mean Corpuscular Volume 102 fL (80-100); Mean Platelet Volume 9.2 fL (9.1-12.4); NRBC ABSOLUTE 0.04 K/mm3 (0.00-0.02); NRBC Auto 0.3 /100 WBC (0.0-0.2); Platelet Count 176 K/mm3 (150-400); RDW Coefficient Variation 15.3 % (11.7-14.2); RDW Standard Deviation 56.9 fL (35.1-46.3); Red Blood Cell Count 2.27 M/mm3 (4.30-5.90); White Blood Cell Count 12.35 K/mm3 (4.00-11.30)
[2021-01-17 09:24] LABS: BAND PERCENT MAN 11 % (0-8); BASOPHILS PERCENT MAN 0 % (0-2); EOSINOPHILS PERCENT MAN 0 % (0-6); LYMPHOCYTES ABSOLUTE MAN 0.86 K/mm3 (0.84-5.20); LYMPHOCYTES PERCENT MAN 7 % (21-46); MONOCYTES ABSOLUTE MAN 0.12 K/mm3 (0.16-1.47); MONOCYTES PERCENT MAN 1 % (4-13); NEUTROPHILS ABSOLUTE MAN 11.36 K/mm3 (1.96-9.15); SEG NEUTROPHILS PERCENT MAN 81 % (41-73); TOTAL CELLS COUNTED 100
--- NOTE | 2021-01-17 14:23 | NUR ---
ICU TRANSFER PATIENT TRANSFER FROM ICU ABOUT 1300. ALERT AND ORIENTED BUT STATED HE WAS TIRED. 2 PERSON MOD ASSIST WITH FWW AND GAIT BELT TO TRANSFER FROM WHEELCHAIR TO BED. PARTIAL BEDBATH COMPLETED DURING TRANSFER. LEFT IJ DC'D BY SALES MARKET LEADER. GAUZE AND TEGADERM TO LEFT NECK C/D/I. 3L O2 VIA NC TO KEEP SATS GREATER THAN 90%. VSS WITH LOW BUT STABLE BP IN THE 90S SYSTOLIC. MIDODRINE TID FOR BP SUPPORT. TRANSPORTED TO RADIOLOGY ON [facility] FOR CT SCAN AT THIS TIME.
--- NOTE | 2021-01-17 18:29 | NUR ---
SHIFT SUMMARY PATIENT TRANSFER FROM ICU THIS SHIFT. ORIENTED WHEN AWAKE, DROWSY THROUGHOUT SHIFT. GENERALIZED WEAKNESS. LEFT IJ DC'D THIS SHIFT BY NUCLEAR LOGGING ENGINEER. ROUTINE ABX. DIALYSIS 01/18/2021. PLAN TO DISCHARGE TO SNF AFTER DIALYSIS. BOWEL TONES PRESENT X4 QUADS. BM THIS SHIFT. ABD MODERATE DISTENTION. DENIES ABD PAIN. O2 VIA NC AT 3L WHEN SLEEPING. WILL REPORT TO TRAPEZE ARTIST RN.
--- NOTE | 2021-01-17 19:55 | NUR ---
Pt BP 106/[address] Dowell covering for cardiology. No parameters on amioderone PO. Orders to d/c previous amio order and to start only amio 200mg daily. WCTM
--- NOTE | 2021-01-18 01:39 | NUR ---
TELE MONITORING TELE ORDERED FOR CLOSER MONITORING. WILL PLACE ON PATIENT WHEN ONCE TELE BOX RECIEVED.
--- NOTE | 2021-01-18 02:05 | NUR ---
Tele placed on patient. SR with PAC's HR 74 per inbound telemarketer. WCTM
[2021-01-18 05:15] LABS: BASOPHILS ABSOLUTE AUTO 0.03 K/mm3 (0.00-0.23); BASOPHILS PERCENT AUTO 0 % (0-2); Hematocrit 23.1 % (37.0-53.0); Hemoglobin 7.5 g/dL (13.5-17.5); Mean Corpuscular HGB Conc 32.5 g/dL (31.5-36.5); Mean Corpuscular Volume 102 fL (80-100); Mean Platelet Volume 9.1 fL (9.1-12.4); NRBC ABSOLUTE 0.05 K/mm3 (0.00-0.02); NRBC Auto 0.4 /100 WBC (0.0-0.2); Platelet Count 193 K/mm3 (150-400); RDW Coefficient Variation 15.4 % (11.7-14.2); RDW Standard Deviation 57.6 fL (35.1-46.3); Red Blood Cell Count 2.27 M/mm3 (4.30-5.90); White Blood Cell Count 12.12 K/mm3 (4.00-11.30)
[2021-01-18 05:36] LABS: Anion Gap 14 mmol/L (6-16); Blood Urea Nitrogen 45 mg/dL (8-24); Bun/Creatinine Ratio 8.4 (12.0-20.0); CO2, Blood 25 mmol/L (21-32); Chloride, Blood 97 mmol/L (98-108); Creatinine, Blood 5.38 mg/dL (0.60-1.20); Glomerular Filtration Rate 10 (60-); Glucose, Blood 99 mg/dL (70-99); Magnesium, Blood 2.4 mg/dL (1.6-2.4); Phosphorus, Blood 7.1 mg/dL (2.5-4.9); Potassium, Blood 3.8 mmol/L (3.5-5.5); Sodium, Blood 136 mmol/L (136-145)
[2021-01-18 05:47] LABS: EOSINOPHILS ABSOLUTE AUTO 0.07 K/mm3 (0.00-0.68); EOSINOPHILS PERCENT AUTO 1 % (0-6); IMMATURE GRAN ABSOLUTE AUTO 0.26 K/mm3 (0.00-0.10); IMMATURE GRAN PERCENT AUTO 2 % (0-1); LYMPHOCYTES PERCENT AUTO 5 % (21-46); MONOCYTES ABSOLUTE AUTO 0.37 K/mm3 (0.16-1.47); MONOCYTES PERCENT AUTO 3 % (4-13); NEUTROPHILS ABSOLUTE AUTO 10.79 K/mm3 (1.96-9.15); NEUTROPHILS PERCENT AUTO 89 % (41-73)
[2021-01-18 06:03] LABS: BASOPHILS ABSOLUTE MAN 0.12 K/mm3 (0.00-0.23); BASOPHILS PERCENT MAN 1 % (0-2); EOSINOPHILS ABSOLUTE MAN 0.12 K/mm3 (0.00-0.68); EOSINOPHILS PERCENT MAN 1 % (0-6); LYMPHOCYTES ABSOLUTE MAN 0.48 K/mm3 (0.84-5.20); LYMPHOCYTES PERCENT MAN 4 % (21-46); MONOCYTES ABSOLUTE MAN 0.36 K/mm3 (0.16-1.47); MONOCYTES PERCENT MAN 3 % (4-13); NEUTROPHILS ABSOLUTE MAN 11.02 K/mm3 (1.96-9.15); SEG NEUTROPHILS PERCENT MAN 91 % (41-73); TOTAL CELLS COUNTED 100
--- NOTE | 2021-01-18 06:17 | NUR ---
Shift Summary Pt A/Ox3-4, drowsy at times. No complaints of pain. Abdomen soft and round. + for tones in all four quads. Bowel incontinence x2. PO intake is very little over night. A couple sips of water and spoonful of apple sauce since 1899. Oliguric. Dialysis patient. Hypotensive, per previous note amio PO changed from 400mg TID to 200mg once per day. Tele is being monitored. SR with PAC's noted. 4L NC on pt. Diminished sounds in BL lungs. + for very weak cough. + for clear secretions. +2 edema in abdomen and thighs upon assessment. BUE & BLE + for weakness. BLE unable to overcome gravity dt weakness. WCTM
--- NOTE | 2021-01-18 09:49 | NUR ---
CALL FROM TELEMETRY APPROX 0928, PULSE 31, OBSERVED PT. SLEEPING, SKIN COLD, CLAMMY AND PT. NOT WAKING TO VERBAL AND TOUCH. RAPID RESPONSE CALLED, CODE TEAM ARRIVE 0930.
--- NOTE | 2021-01-18 10:00 | NUR ---
0940: elroy called and notified of patient change in condition. asked to come to hospital.
--- NOTE | 2021-01-18 10:18 | NUR ---
code called at 1010. and MD in room with pt., .
--- NOTE | 2021-01-18 10:38 | NUR ---
Received referral from nurse senior resident care director (Edwin Bosch) on 01/17/2021. Patient was to discharge with orders for home health and elected [facility]. However, notified today- 01/18/2021 by current nurse senior resident care director (Rolanda Finn) that patient will be discharging to IRU. No further interventions required. [facility] [employer] Referral Liaison
--- NOTE | 2021-01-18 11:47 | NUR ---
Responded to [employer] and observed medical staff and pallative care. Met with Pt. Spouse in room and provided pastoral comfort and grief counselling. Responded to theological questions regarding end of life consistant with the known jose of the pt. Facilitated a life review of the pt. amd reinforced helpful attitudes and practices for the spouse moving forward. Faciliated communication with the floor nurse regarding home choice. Also involved the sister of the spouse who arrived in the role of helper to the spouse. Both Spouse and [place] expressed gratitude for the care of the hospital staff and departed with increased courage and resolve to address the present and future realities of grief and comfort.
--- NOTE | 2021-01-18 11:50 | NUR ---
Arrived to room with angela schwartz team providing emergent care. This RN remain for support and called spouse. When spouse arrived Dr Yi, this RN, and [employer] discussed case with spouse Noreen. Despite all efforts Pt did not survive. Emotional support and condolences offered. [employer]el[employer] remains behind for continued support. Palliative Care will remain available.
== END 2021-01-18 10:10 | DRG 871 ==
LOC: ER 04:43 → ICUE 06:42 → SURS 06:42 → ICUE 07:45 → SURS 07:50 → ICUE 23:40 → SURS 01-17 13:13
PROVIDERS: Emergency Medicine; Family Medicine; Hospitalist; Internal Medicine; Internal Medicine Nephrology; Student in an Organized Health Care Education/Training Program; ADMIT Surgery
PROC: 05HN33Z Insertion of Infusion Device into Left Internal Jugular Vein, Percutaneous Approach (ICD-10-PCS; 2021-01-11)
PROC: 3E033XZ Introduction of Vasopressor into Peripheral Vein, Percutaneous Approach (ICD-10-PCS; 2021-01-11)
PROC: 5A1D70Z Performance of Urinary Filtration, Intermittent, Less than 6 Hours Per Day (ICD-10-PCS; 2021-01-13)
PROC: 30233N1 Transfusion of Nonautologous Red Blood Cells into Peripheral Vein, Percutaneous Approach (ICD-10-PCS; 2021-01-14)
PROC: 5A12012 Performance of Cardiac Output, Single, Manual (ICD-10-PCS; principal; 2021-01-18)
DX: A41.9 Sepsis, unspecified organism (principal); R65.21 Severe sepsis with septic shock; N18.6 End stage renal disease; I21.4 Non-ST elevation (NSTEMI) myocardial infarction; J96.01 Acute respiratory failure with hypoxia; G92.8 Other toxic encephalopathy; J98.59 Other diseases of mediastinum, not elsewhere classified; N25.81 Secondary hyperparathyroidism of renal origin; I12.0 Hypertensive chronic kidney disease with stage 5 chronic kidney disease or end stage renal disease; I48.92 Unspecified atrial flutter; K92.0 Hematemesis; K57.20 Diverticulitis of large intestine with perforation and abscess without bleeding; E87.1 Hypo-osmolality and hyponatremia; I47.1 Supraventricular tachycardia; Z20.822 Contact with and (suspected) exposure to COVID-19; I46.9 Cardiac arrest, cause unspecified; R57.1 Hypovolemic shock; E87.6 Hypokalemia; R73.03 Prediabetes; E83.42 Hypomagnesemia; I27.20 Pulmonary hypertension, unspecified; I35.0 Nonrheumatic aortic (valve) stenosis; E86.9 Volume depletion, unspecified; I25.10 Atherosclerotic heart disease of native coronary artery without angina pectoris; I48.0 Paroxysmal atrial fibrillation; D63.1 Anemia in chronic kidney disease; E78.5 Hyperlipidemia, unspecified; Z79.899 Other long term (current) drug therapy; Z90.89 Acquired absence of other organs; Z98.890 Other specified postprocedural states; Z99.2 Dependence on renal dialysis
CPT/HCPCS: 0241U; 31500; 36415; 36416; 36430; 36556; 71045; 71260; 74177; 80048; 80053; 80069; 81001; 82533; 82803; 82947; 83605; 83735; 84100; 84145; 84443; 84484; 85014; 85018; 85025; 85027; 85610; 86850; 86900; 86901; 86923; 87040; 87086; 93005; 93010; 93306; 94760; 96374; 96375; 97110; 97116; 97161; 97166; 97530; 97535; 99285-25; A9270; C1751; C9113; J0153; J0282; J0881; J1170; J1265; J1720; J2060; J2270; J2405; J2543; J3475; J3480; J7030; J7040; J7050; J7060; J7120; P9016; Q9967